=== PATIENT | male | born 1960 | race Hispanic/Latino ===

== ENCOUNTER 2023-04-04 08:51 | Emergency (ER) | payer MEDICAID ==
[~2023-04-04] VITALS: Ht 162.6 cm; Wt 88.5 kg
[2023-04-04 08:55] VITALS: BP 102/65; PULSE 59; RESP 16
[2023-04-04] MEDS ORDERED: MOXIFLOXACIN HCL 0.5% 3ML DROPS OU ONE (10:00)
[2023-04-04] MEDS ORDERED: MOXIFLOXACIN HCL 0.5% 3ML DROPS OU SCH (10:00)
[2023-04-04] MEDS ORDERED: MOXIOS OU (12:21)
== END 2023-04-04 12:28 | disposition home or self-care (01) ==
LOC: EDH 08:51
DX: H10.89 Other conjunctivitis (principal); H57.13 Ocular pain, bilateral